=== PATIENT | female | born 1960 | race Caucasian/White ===

== ENCOUNTER → 2019-04-28 16:22 | Outpatient (CLI) | payer BC, SELFPAY ==
--- NOTE | 2019-04-28 | MM_ITS ---
PROCEDURE: MM DIG SCREENING MAMM BI W/CAD BILATERAL DIGITAL BREAST TOMOSYNTHESIS INCLUDED Patient Age:59Y CLINICAL INDICATION: ROUTINE 59-year-old. No hormones, no new complaints . Previous stereotactic biopsy left breast for calcifications . Family history mother with breast cancer age 56 postmenopausal COMPARISON: [facility] DIGITAL MAMM-SCREEN BILATERAL from 12/20/2009 [facility] DIGITAL MAMM SURGICAL SPECIMEN from 01/15/2010 [facility] DIGITAL MAMM-SCREEN BILATERAL from 12/19/2010 [facility] DIGITAL MAMM-SCREEN BILATERAL from 12/23/2011 [facility]B DIG MAMM-SCREEN LISA from 12/21/2012 DMSB DIG MAMM-SCREEN LISA from 12/20/2013 DMSB DIG MAMM-SCREEN LISA from 02/04/2015 [facility]B DIG MAMM-SCREEN LISA W/CAD from 12/18/2016 TECHNIQUE: Standard CC and MLO images were obtained. R2 CAD reviewed. Bilateral digital breast tomosynthesis included FINDINGS: [id number] residual scattered residual fibroglandular elements throughout both breast; with gradual progressive partial involution the fatty replacement bilaterally No no suspicious new or dominant mass but no suspicious calcifications. CAD highlights no areas of concern Right and left breast: With no new areas of concern stable the fibroglandular elements most evident superiorly. Right breast. The fibroglandular elements superior right breast appear stable since multiple previous studies dating back to 2012 Left breast: The metallic micro marker from previous stereotactic biopsy superior left breast again noted. IMPRESSION: stable bilateral mammogram. No new areas of concern. Bilateral follow-up 1 year recommended BI-RAD Category: 1 Negative FOLLOW-UP: 1YR 1 Year Follow-up Thank you Dr. Russ for this referral (A letter has been sent to the patient regarding results of the study.) Dictated by: Francisco Javier Oleary MD 05/02/2019 09:13 Electronically signed by Francisco Javier Oleary MD in [place] 05/02/2019 09:13
== END ==
PROVIDERS: PCP Family Medicine; Visit Provider Obstetrics & Gynecology
DX: Z12.31 Encounter for screening mammogram for malignant neoplasm of breast (principal)
CPT/HCPCS: 77063; 77067

== ENCOUNTER → 2021-09-04 12:53 | Outpatient (CLI) | payer BC, SELFPAY ==
--- NOTE | 2021-09-04 12:59 | MM_ITS ---
PROCEDURE INFORMATION: Exam: MG Bilateral Screening 3D Mammography Exam date and time: 09/04/2021 12:51 PM Age: 61 years old Clinical indication: Screening examination TECHNIQUE: Imaging protocol: Bilateral Screening tomosynthesis and 2D mammography including computer-aided detection (CAD) when performed. COMPARISON: 1. MG MM DIG SCREENING MAMM BI W/CAD 04/28/2019 4:33 PM 2. MG DMSB DIG MAMM-SCREEN LISA W/CAD 12/18/2016 10:40 AM FINDINGS: MAMMOGRAPHY: Breast composition: There are scattered areas of fibroglandular density. Mass: None. Architectural distortion: None. Calcifications: No suspicious calcifications. Asymmetric density: None. Skin thickening: None. Axillary adenopathy: None. IMPRESSION: No mammographic evidence of malignancy. Annual screening is recommended unless otherwise clinically indicated. ASSESSMENT: BI-RADS Category 1: Negative
== END ==
PROVIDERS: PCP Family Medicine; Visit Provider Nurse Practitioner Family
DX: Z12.31 Encounter for screening mammogram for malignant neoplasm of breast (principal)
CPT/HCPCS: 77063; 77067

== ENCOUNTER 2023-03-01 13:45 | Outpatient (CLI) | payer BC, SELFPAY ==
--- NOTE | 2023-03-01 13:54 | XR_ITS ---
FINAL REPORT CLINICAL HISTORY: chronic cough, r/o RLL pna FINDINGS: 2 views of the chest were obtained . The heart is normal in size. The mediastinum is within normal limits. The lungs are clear. There is no pneumothorax. Osseous structures are unremarkable. IMPRESSION: No acute cardiopulmonary process. Reviewed, Interpreted and Dictated by Parrish Obando III, MD Transcribed by Evelina Caceres Authenticated and [facility]
[2023-03-01 16:24] LABS: Adenovirus,PCR Not Detected (NotDetected); Coronavirus 19, PCR Not Detected (NotDetected); Coronavirus 229E Not Detected (NotDetected); Coronavirus NL63 Not Detected (NotDetected); Coronavirus OC43 Not Detected (NotDetected); Coronovirus HKU1,PCR Not Detected (NotDetected); Human Metapneumovirus Not Detected (NotDetected); Influenza A, PCR Not Detected (NotDetected); Influenza AH1, PCR Not Detected (NotDetected); Influenza AH3,PCR Not Detected (NotDetected); Influenza B, PCR Not Detected (NotDetected); Parainfluenza 1, PCR Not Detected (NotDetected); Parainfluenza 2, PCR Not Detected (NotDetected); Parainfluenza 3, PCR Not Detected (NotDetected); Parainfluenza 4, PCR Not Detected (NotDetected); Respiratory Syncytial Virus Not Detected (NotDetected); Rhinovirus/Enterovirus Not Detected (NotDetected)
[2023-03-02 10:46] LABS: Influenza AH1, 2009 Detected (NotDetected)
== END 2023-03-01 23:59 ==
LOC: RAD 13:47
PROVIDERS: PCP Nurse Practitioner Family; Visit Provider Nurse Practitioner Family
DX: B34.9 Viral infection, unspecified (principal); R05.9 Cough, unspecified; J10.1 Influenza due to other identified influenza virus with other respiratory manifestations
CPT/HCPCS: 71046; 87632; 87635

== ENCOUNTER 2023-03-01 23:09 | Outpatient (CLI) | payer BC, SELFPAY | END 2023-03-01 23:59 | LOC: LAB.DROPOF 23:09 | PROVIDERS: PCP Family Medicine; Visit Provider Nurse Practitioner Family | DX: R05.9 Cough, unspecified (principal) ==

== ENCOUNTER 2023-08-23 13:05 | Outpatient (CLI) | payer BC, SELFPAY ==
[2023-08-23 12:28] LABS: Microscopic, Urine URINE MICROSCOPIC (MICROSCOPIC)
[2023-08-23 12:33] LABS: Appearance,Urine CLEAR (Clear); Bilirubin,Urine Negative (Negative); Blood, Urine Negative (Negative); Color,Urine YELLOW (Yellow); Glucose,Urine (UA) Negative (Negative); Ketones,Urine Negative (Negative); Leukocyte Esterase,Urine Negative (Negative); Nitrate,Urine Negative (Negative); Protein,Urine Negative (Negative); Specific Gravity, Urine 1.025 (1.005-1.030); Urobilinogen,Urine 0.2 EU/dl (0.2)
[2023-08-23 12:43] LABS: Total Protein,Urine Random < 5.0 mg/dL (0.0-12.0)
[2023-08-23 12:59] LABS: RBC,Urine Occasional #/hpf (0-3)
[2023-08-23 13:00] LABS: Hyaline Casts,Urine Occasional #/lpf (0); Squamous Epithelial Cell,Urine Occasional #/hpf (0-5)
[2023-08-23 13:14] LABS: Basophils # 0.1 K/mm3 (0-0.2); Basophils % 1.2 % (0.1-2.0); Eosinophils # 0.2 K/mm3 (0.0-0.4); Eosinophils % 3.6 % (0.1-12.0); Hemoglobin 14.9 g/dL (12.2-16.2); Lymphocytes # 2.1 K/mm3 (0.7-4.5); Lymphocytes % 38.3 % (10-50); Mean Corpuscular HGB Conc 37.3 g/dL (31.8-35.4); Mean Corpuscular Hemoglobin 34.3 pg (27.0-31.2); Mean Platelet Volume 8.4 fl (7.4-10.4); Monocytes # 0.5 K/mm3 (0.1-1.0); Monocytes % 9.2 % (1.7-9.3); Neutrophils # 2.6 K/mm3 (1.8-7.8); Neutrophils % 47.7 % (37.0-80.0); Platelet Count 231 K/mm3 (142-424); Red Blood Count 4.35 M/mm3 (4.20-5.40); White Blood Count 5.4 K/mm3 (4.8-10.8)
[2023-08-23 14:03] LABS: Alanine Aminotransferase 16 U/L (12-78); Albumin Level 4.9 g/dl (3.5-5.0); Albumin/Globulin Ratio 1.6 (1.1-1.8); Alkaline Phosphatase 71 U/L (38-126); Anion Gap 16.2 mEq/L (5-15); Aspartate Amino Transferase 26 U/L (14-36); Bilirubin,Total 1.1 mg/dl (0.2-1.3); Blood Urea Nitrogen 18 mg/dl (7-17); Calcium 10.2 mg/dl (8.4-10.2); Carbon Dioxide 29 mmol/L (22.0-30.0); Chloride 97 mmol/L (98-107); Chol/HDL Ratio 3.7 (1-3.5); Cholesterol 254 mg/dl (140-200); Estimated Glomerular Filt Rate 50 ml/min (>60); GFR (African American) 61 ML/MIN (>60); Globulin 3.1 g/dL (1.3-3.2); Glucose 109 mg/dl (74-100); HDL Cholesterol 69 mg/dl (40-60); Potassium 4.2 mmoL/L (3.5-5.1); Sodium 138 mmol/L (136-145); Triglycerides 121 mg/dl (30-150); VLDL Cholesterol 24 mg/dL (0-40)
[2023-08-23 14:14] LABS: Direct LDL Cholesterol 148.51 mg/dL (100-129)
[2023-08-23 14:20] LABS: Free T4 (Free Thyroxine) 1.07 ng/dl (0.78-2.19)
[2023-08-23 14:22] LABS: 25-OH Vitamin D, Total 36.3 ng/mL (30-100)
[2023-08-23 14:53] LABS: Vitamin B12 277 pg/mL (239-931)
[2023-08-23 15:56] LABS: Hemoglobin A1C 5.6 % (4.0-6.0)
== END 2023-08-23 23:59 | disposition home or self-care (01) ==
LOC: LAB.DROPOF 13:05
PROVIDERS: PCP Nurse Practitioner Family; Visit Provider Nurse Practitioner Family
DX: R53.83 Other fatigue (principal); Z13.1 Encounter for screening for diabetes mellitus; E78.5 Hyperlipidemia, unspecified; I10 Essential (primary) hypertension
CPT/HCPCS: 80050; 80053; 80061; 81001; 82306; 82607; 83036; 84156; 84439; 84443; 85025; 87086

== ENCOUNTER 2023-09-07 13:01 | Outpatient (CLI) | payer BC, SELFPAY ==
--- NOTE | 2023-09-07 13:01 | MM_ITS ---
PROCEDURE INFORMATION: Exam: MG Bilateral Screening 3D Mammography Exam date and time: 09/07/2023 12:54 PM Age: 63 years old Clinical indication: Screening mammogram TECHNIQUE: Imaging protocol: Bilateral Screening tomosynthesis and 2D mammography including computer-aided detection (CAD) when performed. COMPARISON: 1. MG MM DIG SCREENING MAMM BI W/CAD 09/04/2021 12:51 PM 2. MG MM DIG SCREENING MAMM BI W/CAD 04/28/2019 4:33 PM 3. MG DMSB DIG MAMM-SCREEN LISA W/CAD 12/18/2016 10:40 AM 4. MG DMSB DIG MAMM-SCREEN LISA 02/04/2015 2:14 PM FINDINGS: MAMMOGRAPHY: Breast composition: There are scattered areas of fibroglandular density. Mass: None. Architectural distortion: No new or suspicious architectural distortion. Calcifications: No new or suspicious calcifications are present Asymmetric density: No new or suspicious asymmetric density is present Skin thickening: None. Axillary adenopathy: None. IMPRESSION: No mammographic evidence of malignancy. Recommend annual screening mammography unless otherwise clinically indicated. ASSESSMENT: BI-RADS category 1: Negative.
== END 2023-09-07 23:59 | disposition home or self-care (01) ==
LOC: RAD 13:01
PROVIDERS: PCP Nurse Practitioner Family; Visit Provider Nurse Practitioner Family
DX: Z12.31 Encounter for screening mammogram for malignant neoplasm of breast (principal)
CPT/HCPCS: 77063; 77067

== ENCOUNTER 2023-09-21 09:07 | Outpatient (CLI) | payer BC, SELFPAY ==
--- NOTE | 2023-09-21 09:08 | XR_ITS ---
FINAL REPORT TECHNIQUE: Bone densitometry calculations of the lumbar spine and left hip were obtained. CLINICAL HISTORY: screening osteoporosis, post menopausal COMPARISON: None FINDINGS: Using L1-4, the bone mineral density of the spine is 1.114 g/cm2, corresponding to T-score of 0.6. Using the left hip, the bone mineral density of the femoral neck is 0.891 g/cm2, corresponding to a T-score of -0.4. NOTE: T-score: Standard deviation compared with peak bone mass of young adult mean. *Following the recommendations of the International Society of Bone densitometry, classification of hip BMD is based on the lower of two T-scores; total hip or femoral neck. IMPRESSION: Normal bone mineral density of the lumbar spine and hip. Reviewed, Interpreted and Dictated by Jonathan Rodrigues MD Transcribed by Neyda Phillips Authenticated and [facility]
== END 2023-09-21 23:59 | disposition home or self-care (01) ==
LOC: RAD 09:08
PROVIDERS: PCP Nurse Practitioner Family; Visit Provider Nurse Practitioner Family
DX: Z13.820 Encounter for screening for osteoporosis (principal); Z78.0 Asymptomatic menopausal state
CPT/HCPCS: 77080

== ENCOUNTER 2024-08-10 13:38 | Outpatient (CLI) | payer BC, SELFPAY ==
[2024-08-10 13:37] LABS: Basophils # 0.1 K/mm3 (0-0.2); Basophils % 0.8 % (0.1-2.0); Eosinophils # 0.3 Kmm3 (0.0-0.4); Eosinophils % 3.2 % (0.1-12.0); Hematocrit 40.9 % (37.0-47.0); Hemoglobin 13.9 g/dL (12.2-16.2); Immature Granulocytes # 0.03 10^3uL; Immature Granulocytes % 0.3 %; Lymphocytes # 2.7 K/mm3 (0.7-4.5); Lymphocytes % 25.5 % (10-50); Mean Corpuscular Hemoglobin 28.9 pg (27.0-31.2); Mean Platelet Volume 10.7 fl (7.4-10.4); Monocytes # 0.9 K/mm3 (0.1-1.0); Monocytes % 8.7 % (1.7-9.3); Neutrophils # 6.4 K/mm3 (1.8-7.8); Neutrophils % 61.5 % (37.0-80.0); Nucleated Red Blood Cells # 0 10^3/uL; Nucleated Red Blood Cells % 0 %; Platelet Count 357 K/mm3 (142-424); Red Blood Count 4.81 M/mm3 (4.20-5.40); Red Cell Distribution Width 12.9 % (11.5-17.5); White Blood Count 10.4 K/mm3 (4.8-10.8)
[2024-08-10 14:13] LABS: Alanine Aminotransferase 13 U/L (12-78); Albumin Level 4.7 g/dl (3.5-5.0); Albumin/Globulin Ratio 1.5 (1.1-1.8); Alkaline Phosphatase 88 U/L (38-126); Amylase 52 U/L (30-110); Anion Gap 13.2 mEq/L (5-15); Aspartate Amino Transferase 21 U/L (14-36); Bilirubin,Total 1.3 mg/dl (0.2-1.3); Blood Urea Nitrogen 13 mg/dl (7-17); Calcium 10.4 mg/dl (8.4-10.2); Carbon Dioxide 30 mmol/L (22.0-30.0); Chloride 97 mmol/L (98-107); Chol/HDL Ratio 3.7 (1-3.5); Cholesterol 212 mg/dl (140-200); Estimated Glomerular Filt Rate 56 ml/min (>60); GFR (African American) 68 ML/MIN (>60); Globulin 3.1 g/dL (1.3-3.2); Glucose 118 mg/dl (74-100); HDL Cholesterol 57 mg/dl (40-60); Lipase 85 U/L (23-300); Potassium 4.2 mmoL/L (3.5-5.1); Sodium 136 mmol/L (136-145); Total Protein,Serum 7.8 g/dl (6.3-8.2); Triglycerides 106 mg/dl (30-150); VLDL Cholesterol 21 mg/dL (0-40)
[2024-08-10 14:25] LABS: C-Reactive Protein 85.5 mg/L (0-4); Direct LDL Cholesterol 122.63 mg/dL (100-129)
[2024-08-10 14:26] LABS: Free T4 (Free Thyroxine) 1.22 ng/dl (0.78-2.19)
[2024-08-10 14:31] LABS: 25-OH Vitamin D, Total 32.9 ng/mL (30-100)
[2024-08-10 14:36] LABS: Erythrocyte Sedimentation Rate 76 mm/hr (0-30)
[2024-08-10 14:37] LABS: Hemoglobin A1C 5.4 % (4.0-6.0)
[2024-08-10 14:44] LABS: Thyroid Stimulating Hormone 3.63 uIU/mL (0.465-4.68)
[2024-08-10 14:48] LABS: Ferritin 201 ng/ml (11.1-264)
[2024-08-10 14:51] LABS: HIV Combo NEGATIVE (Negative)
[2024-08-10 15:05] LABS: Hepatitis C Ab Qual. W/ RFX NEGATIVE (Negative)
[2024-08-10 15:08] LABS: Vitamin B12 > 1000 pg/mL (239-931)
[2024-08-10 15:52] LABS: Iron 42 ug/dL (37-170)
[2024-08-10 16:01] LABS: Total Iron Binding Capacity 259 ug/dL (265-497)
[2024-08-10 17:05] LABS: Microscopic, Urine URINE MICROSCOPIC (MICROSCOPIC)
[2024-08-10 17:29] LABS: Appearance,Urine CLEAR (Clear); Bilirubin,Urine Negative (Negative); Blood, Urine Negative (Negative); Color,Urine YELLOW (Yellow); Glucose,Urine (UA) Negative (Negative); Ketones,Urine Negative (Negative); Leukocyte Esterase,Urine Negative (Negative); Nitrate,Urine Negative (Negative); Protein,Urine Negative (Negative); Urobilinogen,Urine 0.2 EU/dl (0.2)
[2024-08-10 19:09] LABS: RBC,Urine Occasional #/hpf (0-3)
[2024-08-10 19:10] LABS: Bacteria,Urine 3+ /lpf
[2024-08-11 13:15] LABS: EBV Ab VCA, IgG >600.0 U/mL (0.0-17.9); EBV Ab VCA, IgM <36.0 U/mL (0.0-35.9); EBV Nuclear Antigen Ab, IgG >600.0 U/mL (0.0-17.9)
== END 2024-08-10 23:59 | disposition home or self-care (01) ==
LOC: LAB.DROPOF 08-11 14:00
PROVIDERS: PCP Nurse Practitioner Family; Visit Provider Nurse Practitioner Family
DX: F41.9 Anxiety disorder, unspecified (principal); F32.A Depression, unspecified; G47.33 Obstructive sleep apnea (adult) (pediatric); E11.9 Type 2 diabetes mellitus without complications; E78.5 Hyperlipidemia, unspecified; I10 Essential (primary) hypertension; R10.823 Right lower quadrant rebound abdominal tenderness; R41.3 Other amnesia; R53.83 Other fatigue; Z11.59 Encounter for screening for other viral diseases; Z11.4 Encounter for screening for human immunodeficiency virus [HIV]
CPT/HCPCS: 80053; 80061; 81001; 82150; 82306; 82607; 82728; 83036; 83540; 83550; 83690; 84156; 84439; 84443; 85025; 85651; 86140; 86664; 86665; 86803; 87086; 87389

== ENCOUNTER 2024-08-11 08:23 | Outpatient (CLI) | payer BC, SELFPAY ==
--- NOTE | 2024-08-11 08:30 | CT_ITS ---
FINAL REPORT TECHNIQUE: Thin section axial images are obtained through the abdomen after intravenous contrast. Reconstruction images were obtained from the axial data. Exam was performed using dose reduction techniques. CLINICAL HISTORY: abd pain epigastric pain and right lower abdomen pain tenderness when palpated COMPARISON: None FINDINGS: LUNG BASES: Lung bases are clear. Heart size is normal. LIVER: Homogeneous except for a small cysts in the right lobe. GALLBLADDER/BILIARY SYSTEM: Gallbladder is present. No gallstones. No biliary dilatation. SPLEEN: Unremarkable. PANCREAS: Unremarkable. ADRENALS: Unremarkable. KIDNEYS/URETERS/BLADDER: No hydronephrosis, renal mass, or renal stone. Unremarkable urinary bladder. GI TRACT: Appendix is dilated and thick walled. Loculated fluid collection between the appendix and the terminal ileum measuring 2.4 x 2.8 cm consistent with acute appendicitis with perforation and abscess formation. Posterior portion of the GI tract is incompletely imaged. No evidence of small-bowel obstruction. LYMPH NODES/RETROPERITONEUM/MESENTERY: Right lower quadrant lymph nodes are likely reactive. No abdominal aortic aneurysm. ABDOMINAL WALL: The abdominal wall is intact. FREE FLUID: No free intraperitoneal air. No abscess. BONES: No acute osseous abnormality. IMPRESSION: Findings most consistent with acute appendicitis with perforation and small abscess formation as above. Reviewed, Interpreted and Dictated by Justina Ribera MD Transcribed by Shyla Burton Authenticated and [facility] [place] [place]
[2024-08-11] MEDS: SODIUM CHLORIDE 0.9% 10ML SYR (RAD ONLY) 10 ML IV (08:44)
[2024-08-11] MEDS: IOPAMIDOL-370 (76%);100ML BOTTLE 75 ML IV (08:44)
== END 2024-08-11 23:59 | disposition home or self-care (01) ==
LOC: RAD 08:24
PROVIDERS: PCP Nurse Practitioner Family; Visit Provider Nurse Practitioner Family
DX: K35.33 Acute appendicitis with perforation, localized peritonitis, and gangrene, with abscess (principal)
CPT/HCPCS: 74160; Q9967

== ENCOUNTER 2024-08-11 13:16 | Inpatient (IN) | payer BC, SELFPAY ==
[2024-08-11] VITALS (17 sets, daily range): BP systolic 105–158; BP diastolic 64–87; PULSE 64–110; RESP 14–18; TEMP 36.1–43; O2SAT 91–100; BMI 29.4
--- NOTE | 2024-08-11 12:33 | EXP.GEN.HP ---
HPI HPI HPI: This is a 64-year-old female who presented to her primary care provider with increasing abdominal pain that started a few days ago . She developed global abdominal pain that was worse in the middle . No fevers. She was significantly tender in the right lower quadrant and follow-up CT scan revealed changes consistent with perforated appendicitis with abscess. The surgical service was asked to evaluate the patient for urgent operative intervention. CBC dated 08/10/2024 reviewed. WBC 10.4 with no left shift. Hemoglobin 13.9. Platelet count 357. CMP dated 08/10/2024 reviewed. Potassium and creatinine normal. LFTs normal. CT scan from earlier today reviewed. Changes consistent with acute appendicitis with perforation and small abscess formation noted. [facility] Disclaimer: The information contained in this section may have been updated after the patient was seen, as this information can be updated by other users. Medical History (Updated 08/11/24 @ 12:37 by Ronn Reilly MD) Anxiety Cough Anxiety and depression History of torn meniscus of knee Family history of breast cancer in first degree relative Hypertension Hyperlipidemia Surgical History History of right oophorectomy H/O discectomy Family History Other Breast cancer Social History (Updated 08/11/24 @ 11:25 by Ciera Cox RN) Smoking Status: Never smoker alcohol intake: current alcohol intake frequency: 0-2 drinks per day current occupational status: employed Travel in the last 8 weeks?: None Have you lived/traveled outside US in past 30 days?: No Contact w/someone who lives/traveled outside US past 30 days?: No Exposure to someone with infectious disease in past 14 days?: No Do you have a fever (greater than 100.4 F or 38 C)?: No Have you tested positive for COVID-19?: No Exposed to someone with COVID-19 in past 14 days?: No Do you have a sore throat?: No Do you have a cough?: No Do you have any weakness?: No Are you experiencing any nausea/vomitting?: No Do you have any diarrhea?: No Are you experiencing any unusual bleeding?: No Do you have any muscle aches/pain?: No Do you have any abdominal pain?: No Are you experiencing loss of taste or smell?: No Other Medical History Have you received the Flu Vaccine for this season: Yes Have you received the Pneumonia Vaccine: No Meds Home Medications and Allergies Home Medications ?Medication ?Instructions ?Recorded ?Confirmed ?Type buspirone 7.5 mg tablet 7.5 mg PO BID PRN anxiety #60 tabs 03/01/23 08/10/24 Rx escitalopram oxalate 10 mg tablet 10 mg PO DAILY #90 tabs 08/09/24 08/10/24 Rx (Lexapro) pravastatin 40 mg tablet 40 mg PO HS 08/09/24 08/10/24 History valsartan 80 1 tab PO QAM 08/09/24 08/10/24 History mg-hydrochlorothiazide 12.5 mg tablet New Prescriptions to Start Prescriptions: Allergies Allergy/AdvReac Type Severity Reaction Status Date / Time No Known Allergies Allergy Verified 08/11/24 11:25 Exam Data for Last 24 hours Vital signs and Labs for Last 24 Hours: Temp Pulse Resp BP Pulse Ox O2 Del Method 97.3 F L 110 H 18 130/64 100 Room Air 08/11/24 11:07 08/11/24 11:07 08/11/24 11:07 08/11/24 11:07 08/11/24 11:07 08/11/24 11:07 I & O for Last 24 hours: Intake & Output 08/09/24 08/10/24 08/11/24 08/12/24 11:59 11:59 11:59 11:59 Weight 177 lb Constitutional Constitutional: no acute distress *Routine HEENT Exam Head: Present normocephalic Eye: Present EOMI ENT: Present mucous membranes moist *Routine Neck Exam Neck: Present full ROM *Routine Respiratory Exam Respiratory: Absent respiratory distress *Routine Cardiovascular Exam Cardiovascular: Absent tachycardia *Routine Abdominal Exam Abdominal: Present soft and tenderness *Routine Rectal Exam Rectal:: deferred *Routine Genitalia Exam Genitalia:: deferred *Routine Extremities Exam Extremities: Present full ROM *Routine Skin Exam Skin: Absent erythema *Routine Neurological Exam Neurological: Present alert Results Results CT scan - abdomen: report reviewed and image reviewed CT scan - pelvis: report reviewed and image reviewed Assessment and Plan *Assessment and plan (1) Appendicitis with abscess: Status: Acute Category: Medical Code(s): K35.33 - Acute appendicitis with perforation, localized peritonitis, and gangrene, with abscess Plan: She is being transferred urgently to the operative suite for laparoscopic appendectomy. Postoperative care to follow. I have discussed the risks and benefits including, but not limited to: Bleeding Infection Damage to surrounding tissue Inherent risks of sedation The patient agrees to proceed. (2) Anxiety and depression: Status: Acute Category: Medical Code(s): F41.9 - Anxiety disorder, unspecified; F32.A - Depression, unspecified (3) Hyperlipidemia: Status: Chronic Qualifiers: Hyperlipidemia type: unspecified Qualified Code(s): E78.5 - Hyperlipidemia, unspecified Category: Medical Code(s): E78.5 - Hyperlipidemia, unspecified (4) Hypertension: Status: Chronic Qualifiers: Hypertension type: unspecified Qualified Code(s): I10 - Essential (primary) hypertension Category: Medical Code(s): I10 - Essential (primary) hypertension
[2024-08-11] MEDS: METRONIDAZ/SOD CHL 500 MG/100 ML PIGGYBACK 100 MG IV (12:55)
[2024-08-11] MEDS: LIDOCAINE 1% 20ML MDV 20 ML (13:03)
[2024-08-11] MEDS: SODIUM CHLORIDE IRRIG SOLUTION 3,000 ML 200 ML IR (13:04)
[2024-08-11] MEDS: CEFTRIAXONE SODIUM 2 GM in 0.9 % SODIUM CHLORIDE 100 ML IV (13:07)
--- NOTE | 2024-08-11 13:37 | EXP.HP ---
History of Present Illness *History of present illness: This is a 64-year-old female who presented to her primary care provider with increasing abdominal pain that started a few days ago . She developed global abdominal pain that was worse in the middle . No fevers. She was significantly tender in the right lower quadrant and follow-up CT scan revealed changes consistent with perforated appendicitis with abscess. The surgical service was asked to evaluate the patient for urgent operative intervention. CBC dated 08/10/2024 reviewed. WBC 10.4 with no left shift. Hemoglobin 13.9. Platelet count 357. CMP dated 08/10/2024 reviewed. Potassium and creatinine normal. LFTs normal. CT scan from earlier today reviewed. Changes consistent with acute appendicitis with perforation and small abscess formation noted. [facility] Disclaimer: The information contained in this section may have been updated after the patient was seen, as this information can be updated by other users. Medical History (Updated 08/11/24 @ 12:37 by Ronn Reilly MD) Anxiety Cough Anxiety and depression History of torn meniscus of knee Family history of breast cancer in first degree relative Hypertension Hyperlipidemia Surgical History History of right oophorectomy H/O discectomy Family History Other Breast cancer Social History (Updated 08/11/24 @ 11:25 by Ciera Cox RN) Smoking Status: Never smoker alcohol intake: current alcohol intake frequency: 0-2 drinks per day current occupational status: employed Travel in the last 8 weeks?: None Have you lived/traveled outside US in past 30 days?: No Contact w/someone who lives/traveled outside US past 30 days?: No Exposure to someone with infectious disease in past 14 days?: No Do you have a fever (greater than 100.4 F or 38 C)?: No Have you tested positive for COVID-19?: No Exposed to someone with COVID-19 in past 14 days?: No Do you have a sore throat?: No Do you have a cough?: No Do you have any weakness?: No Are you experiencing any nausea/vomitting?: No Do you have any diarrhea?: No Are you experiencing any unusual bleeding?: No Do you have any muscle aches/pain?: No Do you have any abdominal pain?: No Are you experiencing loss of taste or smell?: No Other Medical History Have you received the Flu Vaccine for this season: Yes Have you received the Pneumonia Vaccine: No Meds Home Medications and Allergies Home Medications ?Medication ?Instructions ?Recorded ?Confirmed ?Type buspirone 7.5 mg tablet 7.5 mg PO BID PRN anxiety #60 tabs 03/01/23 08/10/24 Rx escitalopram oxalate 10 mg tablet 10 mg PO DAILY #90 tabs 08/09/24 08/10/24 Rx (Lexapro) pravastatin 40 mg tablet 40 mg PO HS 08/09/24 08/10/24 History valsartan 80 1 tab PO QAM 08/09/24 08/10/24 History mg-hydrochlorothiazide 12.5 mg tablet New Prescriptions to Start Prescriptions: Allergies Allergy/AdvReac Type Severity Reaction Status Date / Time No Known Allergies Allergy Verified 08/11/24 11:25 Exam Data for Last 24 hours Vital signs and Labs for Last 24 Hours: Temp Pulse Resp BP Pulse Ox O2 Del Method 97.3 F L 110 H 18 130/64 100 Room Air 08/11/24 11:07 08/11/24 11:07 08/11/24 11:07 08/11/24 11:07 08/11/24 11:07 08/11/24 11:07 I & O for Last 24 hours: Intake & Output 08/08/24 08/09/24 08/10/24 08/11/24 23:59 23:59 23:59 23:59 Weight 80.286 kg
--- NOTE | 2024-08-11 14:25 | EXP.OP.NOTE ---
Date of procedure: 08/11/24 Pre-op Diagnosis:: Perforated appendicitis with abscess Post-op Diagnosis:: Same Procedure performed:: Laparoscopic appendectomy Surgeon:: Ronn Reilly MD Anesthesia: GETA Estimated blood loss (mL): 25 Operative findings:: Profound inflammatory changes throughout right lower quadrant with adhered colon and small bowel. Dense adhesions to right lateral sidewall and posterior peritoneal margin Necrotic appendix with perforation and posteriorly-placed abscess No obvious injury to small bowel, colon, or ureter visualized Operative note:: After informed consent was obtained the patient was taken to the operating room and placed in the supine position. General anesthesia was induced and her abdomen was prepped and draped in a sterile fashion. After infiltration with local anesthetic a supraumbilical incision was made. A Veress needle was placed in position. A 5 mm trocar was placed in the suprapubic position under direct visualization. An additional 5 mm trocar was placed in the left lower quadrant. Evaluation revealed profound inflammatory changes throughout the right lower quadrant. Dissection was exceptionally difficult as dense adhesions to the right lateral sidewall and posterior peritoneal margin were noted. Adhesions involve the small bowel, colon, and planes overlying the expected path of the ureter. No obvious injury to the above-stated structures noted. A complex posterior abscess was evacuated via suctioning. As the appendix was elevated a combination of blunt dissection and harmonic lauren were utilized to dissect through the dense adhesed tissue and mesoappendix. The margin of the appendix appeared viable. An Endopath 45 stapling device was utilized to transect through the appendix at its base. The appendix was placed in a retrieval bag and removed through the supraumbilical trocar site. The right lower quadrant was thoroughly irrigated. No active bleeding or sign of injury was noted. No additional pockets of purulence were noted. Fascia at the supraumbilical trocar site was reapproximated utilizing the neoclose device. Pneumoperitoneum was released as the remaining trocars were removed. All wounds were irrigated and skin was reapproximated with 4-0 Monocryl in an interrupted subcuticular manner. Dressings were applied and the patient was transferred to recovery in stable condition. Condition: stable Disposition: PACU Specimens:: Appendix Complications:: No immediate
--- NOTE | 2024-08-11 14:37 | EXP.ANES.I ---
[facility] Anesthesia Record Part I Anesthesia Record I Intake, IV Amount: 1,400 Hydration: Adequate Estimated blood loss (mL): 0 Urine output (mL): 0 Blood Products used (#): none Blood Pressure: 134/76 SaO2: 95 Pulse Rate: 67 Airway Patency: Patent Respiratory Rate: 14 Temperature: 97.0 F Patient is:: Awake, Nasal O2 and Stable Stable to PACU at:: 14:30
[2024-08-11] MEDS: ONDANSETRON 4MG/2ML VIAL 4 MG IV (14:44)
[2024-08-11] MEDS: MORPHINE 2MG/ML SYRINGE 1 MG IV (14:48)
[2024-08-11] MEDS: PROMETHAZINE HCL 25MG/ML 1ML VIAL 6.25 MG IV (14:57)
[2024-08-11] MEDS: SODIUM CHLORIDE 0.9% 25ML BAG 25 ML IV (14:59)
--- NOTE | 2024-08-11 15:06 | PC.NURSE ---
arrived by bed from surgery
--- NOTE | 2024-08-11 15:21 | SUR.PHASEI ---
1500- Patient VSS and pain and nausea are controlled at this time. Report called to ANI Lomeli. Patient transported via bed to room 217.
[2024-08-11] MEDS: KETOROLAC 30MG/ML VIAL 30 MG IV (15:27)
[2024-08-11] MEDS: PROMETHAZINE HCL 25MG/ML 1ML VIAL 12.5 MG IV (15:33)
[2024-08-11] MEDS: 0.9 % SODIUM CHLORIDE 1000ML 1,000 ML 125 ML IV ×2 (15:56→22:16)
[2024-08-11] MEDS: PIPERACILLIN/TAZO 4.5 GM in 0.9 % SODIUM CHLORIDE 100 ML IV ×2 (15:57→21:29)
[2024-08-11] MEDS: HYDROCODONE/APAP 5/325 MG TABLET 1 TAB PO (16:00)
--- NOTE | 2024-08-11 19:52 | EXP.SURG.PN ---
Subjective Narrative: Post-op check from [facility] earlier today for perforated appendicitis. Operative records reviewed. Patient without much complaint. Had initial INDY, which does not seem significant at this time. No worsening pain. No dyspnea. Exam Data for Last 24 hours Vital signs and Labs for Last 24 Hours: Temp Pulse Resp BP Pulse Ox O2 Del Method 97.5 F L 64 16 107/64 L 91 L Room Air 08/11/24 15:23 08/11/24 18:00 08/11/24 18:00 08/11/24 18:00 08/11/24 18:00 08/11/24 18:40 I & O for Last 24 hours: Intake & Output 08/08/24 08/09/24 08/10/24 08/11/24 23:59 23:59 23:59 23:59 Intake Total 1400 / 1400 Balance 1400 / 1400 Weight 80.286 kg Constitutional Constitutional: no acute distress and cooperative *Routine Respiratory Exam Respiratory: Present normal respiratory effort and able to speak in complete sentences *Routine Cardiovascular Exam Cardiovascular: Present RRR *Routine Abdominal Exam Comments: Appropriately tender, although minimally so. Dressings clean and intact. No worrisome distention. No guarding. *Routine Exam Comments: Cosme catheter in place. No gross blood noted. Volume adequate. Progress Note: A&P Assessment and plan (1) Appendicitis with abscess: Status: Acute Assessment and plan: Post-op from [facility]. IVF. Abx. Pain appears well-controlled. No evidence of early operative complications. Will closely monitor outputs and am labs. Discussed case with patient and her at bedside. They are comfortable with this care plan. (2) Anxiety and depression: Status: Acute (3) Hyperlipidemia: Status: Chronic (4) Hypertension: Status: Chronic
[2024-08-11] MEDS: PRAVASTATIN 40MG TAB 40 MG PO (21:30)
[2024-08-11] MEDS: PANTOPRAZOLE 40MG VIAL 40 MG IV (21:30)
[2024-08-11 23:08] LABS: Microscopic, Urine URINE MICROSCOPIC (MICROSCOPIC)
[2024-08-11 23:18] LABS: Appearance,Urine CLEAR (Clear); Bilirubin,Urine Negative (Negative); Blood, Urine Negative (Negative); Color,Urine YELLOW (Yellow); Glucose,Urine (UA) Negative (Negative); Ketones,Urine Negative (Negative); Leukocyte Esterase,Urine Negative (Negative); Nitrate,Urine Negative (Negative); Protein,Urine Negative (Negative); Specific Gravity, Urine <= 1.005 (1.005-1.030); Urobilinogen,Urine 0.2 EU/dl (0.2)
[2024-08-11 23:27] LABS: Squamous Epithelial Cell,Urine Occasional #/hpf (0-5); WBC,Urine Occasional #/hpf (0-3)
[2024-08-12] VITALS: BP 98/53; PULSE 63; RESP 16; TEMP 36.7; O2SAT 91
[2024-08-12] MEDS: HYDROCODONE/APAP 5/325 MG TABLET 1 TAB PO ×3 (00:38→20:48)
[2024-08-12] MEDS: PIPERACILLIN/TAZO 4.5 GM in 0.9 % SODIUM CHLORIDE 100 ML IV ×4 (02:55→20:48)
[2024-08-12 04:00] VITALS: BP 98/58; PULSE 53; RESP 16; TEMP 36.3; O2SAT 94; BMI 31.1
--- NOTE | 2024-08-12 04:31 | PC.NURSE ---
v/s, ox4. Pt tolerated IV ABX. Pt c/o pain once during shift, treated per APR. Strict I&O's per surgeon-Dr. Lake. Pt has been using her IS without issue. Cosme still in place. Lap sites monitored for drainage. Plan of care ongoing.
[2024-08-12] MEDS: 0.9 % SODIUM CHLORIDE 1000ML 1,000 ML 125 ML IV (06:03)
[2024-08-12 07:25] LABS: Basophils % 0.2 % (0.1-2.0); Hematocrit 31.7 % (37.0-47.0); Hemoglobin 10.5 g/dL (12.2-16.2); Immature Granulocytes # 0.05 10^3uL; Immature Granulocytes % 0.5 %; Lymphocytes % 9.1 % (10-50); Mean Corpuscular HGB Conc 33.1 g/dL (31.8-35.4); Mean Corpuscular Hemoglobin 28.4 pg (27.0-31.2); Mean Corpuscular Volume 85.7 fl (81-99); Mean Platelet Volume 10.2 fl (7.4-10.4); Monocytes # 0.8 K/mm3 (0.1-1.0); Monocytes % 7.1 % (1.7-9.3); Neutrophils # 8.8 K/mm3 (1.8-7.8); Neutrophils % 83.1 % (37.0-80.0); Nucleated Red Blood Cells # 0 10^3/uL; Nucleated Red Blood Cells % 0 %; Platelet Count 264 K/mm3 (142-424); Red Cell Distribution Width 12.7 % (11.5-17.5); Red Cell Distribution Width-SD 39.8 fL; White Blood Count 10.6 K/mm3 (4.8-10.8)
[2024-08-12 08:00] VITALS: BP 98/58; PULSE 61; RESP 17; TEMP 36.6; O2SAT 98
[2024-08-12] MEDS: IRBESARTAN 75MG TABLET 75 MG PO (08:28)
[2024-08-12] MEDS: hydroCHLOROthiazide 12.5MG CAPSULE 12.5 MG PO (08:29)
[2024-08-12] MEDS: ESCITALOPRAM 10MG TABLET 10 MG PO (08:29)
[2024-08-12 08:36] LABS: Chloride 108 mmol/L (98-107); Sodium 135 mmol/L (136-145)
[2024-08-12 08:37] LABS: Potassium 3.8 mmoL/L (3.5-5.1)
[2024-08-12 08:39] LABS: Blood Urea Nitrogen 14 mg/dl (7-17); Creatinine Clearance Estimated 76 mL/min (50-200); Estimated Glomerular Filt Rate 56 ml/min (>60); GFR (African American) 68 ML/MIN (>60)
[2024-08-12 08:40] LABS: Anion Gap 6.8 mEq/L (5-15); Calcium 8.2 mg/dl (8.4-10.2); Carbon Dioxide 24 mmol/L (22.0-30.0); Glucose 144 mg/dl (74-100)
--- NOTE | 2024-08-12 08:49 | P.PN_ITS ---
Subjective Narrative: Expectedly with some pain overnight. Denies nausea. Passing a small amount of flatus. Sat in chair x 2 hrs last pm. Seems a little hesitant for PO intake. Exam Data for Last 24 hours Vital signs and Labs for Last 24 Hours: Temp Pulse Resp BP Pulse Ox O2 Del Method 98 F 61 17 98/58 L 98 Room Air 08/12/24 08:00 08/12/24 08:00 08/12/24 08:00 08/12/24 08:00 08/12/24 08:00 08/12/24 08:00 Laboratory Results - last 24 hr 08/11/24 12:45: Urine Color Yellow, Urine Appearance Clear, Urine pH 6.0, Ur Specific [place] <= 1.005, Urine Protein Negative, Urine Glucose (UA) Negative, Urine Ketones Negative, Urine Blood Negative, Urine Nitrate Negative, Urine Bilirubin Negative, Urine Urobilinogen 0.2, Ur Leukocyte Esterase Negative, Urine RBC None, Urine WBC Occasional, Ur Squamous Epith Cells Occasional, Urine Bacteria None 08/12/24 07:07: WBC 10.6, RBC 3.70 L, Hgb 10.5 L, Hct 31.7 L, MCV 85.7, MCH 28.4, MCHC 33.1, RDW 12.7, Plt Count 264 D, MPV 10.2, Neut % (Auto) 83.1 H, Lymph % (Auto) 9.1 L, [place] % (Auto) 7.1, Eos % (Auto) 0.0 L, Baso % (Auto) 0.2, Neut # (Auto) 8.8 H, Lymph # (Auto) 1.0, [place] # (Auto) 0.8, Eos # (Auto) 0.0, Baso # (Auto) 0.0, Sodium 135 L, Potassium 3.8, Chloride 108 H, Carbon Dioxide 24, Anion Gap 6.8, BUN 14, Creatinine 1.00, Estimated Creat Clear 76, Estimated GFR 56 L, Est GFR ( Amer) 68, Glucose 144 H, Calcium 8.2 L I & O for Last 24 hours: Intake & Output 08/09/24 08/10/24 08/11/24 08/12/24 23:59 23:59 23:59 23:59 Intake Total 1399 / 2014 615 / 615 Output Total 500 / 500 700 / 700 Balance 900 / 1515 -85 / -85 Weight 80.286 kg 84.822 kg Constitutional Constitutional: no acute distress and cooperative *Routine Respiratory Exam Respiratory: Present normal respiratory effort and able to speak in complete sentences Comments: Slight coarse cough without production (chronic, per patient report) *Routine Cardiovascular Exam Cardiovascular: Present RRR *Routine Abdominal Exam Comments: Appropriately tender at incisions and RLQ. No diffuse peritoneal signs. Very small foci of strike-through at umbilical dressing. Non-distended. *Routine Exam Comments: Urine clear/pale yellow in herrera tubing and collection bag. *Routine Extremities Exam Comments: LLE with very minimal edema. No edema RLE. Progress Note: A&P Assessment and plan (1) Appendicitis with abscess: Status: Acute (2) Anxiety and depression: Status: Acute (3) Hyperlipidemia: Status: Chronic (4) Hypertension: Status: Chronic Assessment and Plan Assessment and Plan for All Diagnoses:: POD #1 s/p lap appy for perforated appendicitis. Hemodynamically appears appropriate. Slight drift of H/H does not appear worrisome currently, but will trend in am. Will have herrera removed as no evidence of hematuria. UOP appears to be documented in duplicate. As such, her UOP was likely 600mL overnight which is still more than adequate. Will decrease IVF rate and hope to advance diet today as tolerated. OOB and ambulate in hallway today. Continue IV abx d/t operative findings.
[2024-08-12] MEDS: 0.45% NaCl w/20mEq KCL 1,000 ML 50 ML IV (09:00)
[2024-08-12 12:00] VITALS: BP 93/47; PULSE 58; RESP 16; TEMP 36.6; O2SAT 95
[2024-08-12 16:00] VITALS: BP 104/63; PULSE 61; RESP 16; TEMP 36.6; O2SAT 94
[2024-08-12 19:32] VITALS: BP 110/68; PULSE 58; RESP 20; TEMP 36.8; O2SAT 94
--- NOTE | 2024-08-12 19:45 | PC.NURSE ---
PATIENT TOLERATING CLEAR LIQUIDS, PATIENT HAS AMBULATED IN THE HALLWAYS TWICE TODAY WITHOUT ANY COMPLICATIONS, BHATT CATH REMOVED PER MD ORDER, URINE OUTPUT HAS BEEN ADEQUATE SINCE REMOVAL OF BHATT, WILL CONTINUE TO MONITOR.
[2024-08-12] MEDS: PRAVASTATIN 40MG TAB 40 MG PO (20:48)
[2024-08-12] MEDS: PANTOPRAZOLE 40MG VIAL 40 MG IV (20:48)
[2024-08-13] VITALS: BP 124/71; PULSE 62; RESP 18; TEMP 36.8; O2SAT 95
[2024-08-13] MEDS: PIPERACILLIN/TAZO 4.5 GM in 0.9 % SODIUM CHLORIDE 100 ML IV ×4 (02:19→20:51)
[2024-08-13 04:00] VITALS: BP 122/70; PULSE 60; RESP 16; TEMP 36.8; O2SAT 96; BMI 31.1
--- NOTE | 2024-08-13 05:03 | PC.NURSE ---
Pt A&O x4. Pt is on RA. Pt complained of pain once this shift, medicated per MAR. Pt tolerating liquid diet ok. No acute changes noted. Pt resting in bed, call light is within reach. Plan of care ongoing.
[2024-08-13 06:20] LABS: Basophils % 0.6 % (0.1-2.0); Eosinophils # 0.2 Kmm3 (0.0-0.4); Eosinophils % 3.1 % (0.1-12.0); Hematocrit 29.8 % (37.0-47.0); Hemoglobin 9.8 g/dL (12.2-16.2); Immature Granulocytes # 0.01 10^3uL; Immature Granulocytes % 0.1 %; Lymphocytes # 2.2 K/mm3 (0.7-4.5); Lymphocytes % 31.6 % (10-50); Mean Corpuscular HGB Conc 32.9 g/dL (31.8-35.4); Mean Corpuscular Hemoglobin 28.7 pg (27.0-31.2); Mean Corpuscular Volume 87.1 fl (81-99); Mean Platelet Volume 10.3 fl (7.4-10.4); Monocytes # 0.5 K/mm3 (0.1-1.0); Monocytes % 7.4 % (1.7-9.3); Neutrophils % 57.2 % (37.0-80.0); Nucleated Red Blood Cells # 0 10^3/uL; Nucleated Red Blood Cells % 0 %; Platelet Count 264 K/mm3 (142-424); Red Blood Count 3.42 M/mm3 (4.20-5.40); Red Cell Distribution Width 13.1 % (11.5-17.5); Red Cell Distribution Width-SD 41.6 fL
[2024-08-13 06:29] LABS: Albumin Level 3.2 g/dl (3.5-5.0); Chloride 109 mmol/L (98-107); Potassium 3.3 mmoL/L (3.5-5.1); Sodium 140 mmol/L (136-145)
[2024-08-13 06:32] LABS: Alanine Aminotransferase 13 U/L (12-78); Albumin/Globulin Ratio 1.1 (1.1-1.8); Alkaline Phosphatase 60 U/L (38-126); Anion Gap 4.3 mEq/L (5-15); Aspartate Amino Transferase 22 U/L (14-36); Bilirubin,Total 0.5 mg/dl (0.2-1.3); Blood Urea Nitrogen 13 mg/dl (7-17); Calcium 8.4 mg/dl (8.4-10.2); Carbon Dioxide 30 mmol/L (22.0-30.0); Creatinine Clearance Estimated 63 mL/min (50-200); Estimated Glomerular Filt Rate 45 ml/min (>60); GFR (African American) 55 ML/MIN (>60); Globulin 2.8 g/dL (1.3-3.2); Glucose 105 mg/dl (74-100)
[2024-08-13 08:00] VITALS: BP 129/71; PULSE 66; RESP 16; TEMP 36.4; O2SAT 94
--- NOTE | 2024-08-13 09:29 | P.PN_ITS ---
Subjective Narrative: States she slept much better last night . Still sleepy this am. Passing flatus. No BM. Tolerated clear liquids without nausea. Ambulated in the hallway x 5. Voided without herrera. Denies seeing any blood in urine. Exam Data for Last 24 hours Vital signs and Labs for Last 24 Hours: Temp Pulse Resp BP Pulse Ox O2 Del Method 97.5 F L 66 16 129/71 94 L Room Air 08/13/24 08:00 08/13/24 08:00 08/13/24 08:00 08/13/24 08:00 08/13/24 08:00 08/13/24 08:00 Laboratory Results - last 24 hr 08/13/24 05:50: WBC 7.0 D, RBC 3.42 L, Hgb 9.8 L, Hct 29.8 L, MCV 87.1, MCH 28.7, MCHC 32.9, RDW 13.1, Plt Count 264, MPV 10.3, Neut % (Auto) 57.2, Lymph % (Auto) 31.6, [place] % (Auto) 7.4, Eos % (Auto) 3.1, Baso % (Auto) 0.6, Neut # (Auto) 4.0, Lymph # (Auto) 2.2, [place] # (Auto) 0.5, Eos # (Auto) 0.2, Baso # (Auto) 0.0, Sodium 140, Potassium 3.3 L, Chloride 109 H, Carbon Dioxide 30, Anion Gap 4.3 L, BUN 13, Creatinine 1.20 H, Estimated Creat Clear 63, Estimated GFR 45 L, Est GFR ( Amer) 55 L, Glucose 105 H D, Calcium 8.4, Total Bilirubin 0.5, AST 22, ALT 13, Alkaline Phosphatase 60, Total Protein 6.0 L, Albumin 3.2 L, Globulin 2.8, Albumin/Globulin Ratio 1.1 I & O for Last 24 hours: Intake & Output 08/10/24 08/11/24 08/12/24 08/13/24 23:59 23:59 23:59 23:59 Intake Total 1399 1335 / 1535 300 / 300 Output Total 500 / 500 1550 / 0 500 / 500 Balance 900 / 1515 -215 / -515 -200 / -200 Weight 80.286 kg 84.822 kg 84.822 kg Constitutional Constitutional: no acute distress and average body habitus *Routine Respiratory Exam Respiratory: Present normal respiratory effort and able to speak in complete sentences *Routine Cardiovascular Exam Cardiovascular: Present RRR *Routine Abdominal Exam Abdominal: Present soft Comments: No change in dressing appearance. Overall softer exam this am. No distention. Still appropriately tender at incisions and RLQ. No R flank tenderness. Progress Note: A&P Assessment and plan (1) Appendicitis with abscess: Status: Acute Assessment and plan: POD #2 s/p lap appy for perforated appendicitis. Clinically appears to be progressing well. Tolerating clear liquids. Ambulating. Unclear significance of Hgb drift to 9.8 from 10.5. No obvious clinical sign of bleeding otherwise. Creatinine 1.2 which is a little up from 1.0 yesterday. Given the operative findings, will repeat these in am. Continue IVF at 50ml/h. Advance diet to cardiac diet. Not ready for discharge today given the above concerns. Will defer possible discharge to surgical practice of record tomorrow. (2) Anxiety and depression: Status: Acute (3) Hyperlipidemia: Status: Chronic (4) Hypertension: Status: Chronic
[2024-08-13] MEDS: IRBESARTAN 75MG TABLET 75 MG PO (10:27)
[2024-08-13] MEDS: ESCITALOPRAM 10MG TABLET 10 MG PO (10:27)
[2024-08-13] MEDS: hydroCHLOROthiazide 12.5MG CAPSULE 12.5 MG PO (10:27)
[2024-08-13] MEDS: 0.45% NaCl w/20mEq KCL 1,000 ML 50 ML IV (11:34)
[2024-08-13] MEDS: HYDROCODONE/APAP 5/325 MG TABLET 1 TAB PO ×2 (11:38→17:44)
[2024-08-13 16:00] VITALS: BP 114/68; PULSE 77; RESP 17; TEMP 36.4; O2SAT 95
[2024-08-13 20:00] VITALS: BP 133/76; PULSE 68; RESP 14; TEMP 37; O2SAT 96
[2024-08-13] MEDS: PRAVASTATIN 40MG TAB 40 MG PO (20:51)
[2024-08-13] MEDS: PANTOPRAZOLE 40MG TABLET 40 MG PO (20:51)
[2024-08-14] VITALS: BP 133/66; PULSE 63; RESP 12; TEMP 36.8; O2SAT 97
[2024-08-14] MEDS: PIPERACILLIN/TAZO 4.5 GM in 0.9 % SODIUM CHLORIDE 100 ML IV (02:15)
[2024-08-14 04:00] VITALS: BP 154/89; PULSE 74; RESP 14; TEMP 36.9; O2SAT 96; BMI 32.7
--- NOTE | 2024-08-14 04:30 | PC.NURSE ---
Patient is alert and oriented x4. She was observed to have eyes closed, respirations even and unlabored on room air, and no apparent distress throughout the majority of the night. Patient has not had any complaints of worsening abdominal pain. Upon palpation of her abdomen, the patient reported minimal tenderness; appearance is soft and slightly puffy. Bowel sounds were active in all quadrants upon auscultation; patient reports passing gas. However, the patient has not had a bowel movement thus far this shift. Laparscopic incision sites were assessed; dressings remain clean, dry, and intact. Auscultation of heart and lungs within normal findings. Incentive spirometer usage at the bedside. Scheduled medications were administered per APR. KCl 20 mEq in 0.45% NaCl solution continues to infuse at 50 mL/hr. Patient has been tolerating a cardiac diet (was given orange sherbet ice cream at bedtime) very well without complaints of nausea/vomiting. She ambulates independently in her room/to the bathroom without any difficulties. SCDs refused. Urine output measured and documented accordingly. At this time, the patient is resting in bed without any further complaints. No new needs at this time. Call light within reach.
[2024-08-14 05:56] LABS: Basophils % 0.6 % (0.1-2.0); Eosinophils # 0.3 Kmm3 (0.0-0.4); Eosinophils % 3.9 % (0.1-12.0); Hematocrit 31.3 % (37.0-47.0); Hemoglobin 10.5 g/dL (12.2-16.2); Immature Granulocytes # 0.02 10^3uL; Immature Granulocytes % 0.3 %; Lymphocytes # 2.3 K/mm3 (0.7-4.5); Lymphocytes % 33.2 % (10-50); Mean Corpuscular HGB Conc 33.5 g/dL (31.8-35.4); Mean Corpuscular Volume 86.5 fl (81-99); Mean Platelet Volume 10.1 fl (7.4-10.4); Monocytes # 0.6 K/mm3 (0.1-1.0); Neutrophils # 3.7 K/mm3 (1.8-7.8); Nucleated Red Blood Cells # 0 10^3/uL; Nucleated Red Blood Cells % 0 %; Platelet Count 295 K/mm3 (142-424); Red Blood Count 3.62 M/mm3 (4.20-5.40); Red Cell Distribution Width 12.8 % (11.5-17.5); Red Cell Distribution Width-SD 40.9 fL; White Blood Count 6.9 K/mm3 (4.8-10.8)
[2024-08-14 06:02] LABS: Chloride 103 mmol/L (98-107); Potassium 3.6 mmoL/L (3.5-5.1); Sodium 140 mmol/L (136-145)
[2024-08-14 06:05] LABS: Anion Gap 9.6 mEq/L (5-15); Carbon Dioxide 31 mmol/L (22.0-30.0)
[2024-08-14 06:06] LABS: Calcium 8.4 mg/dl (8.4-10.2); Glucose 98 mg/dl (74-100)
[2024-08-14 06:11] LABS: Blood Urea Nitrogen 12 mg/dl (7-17); Creatinine Clearance Estimated 62 mL/min (50-200); Estimated Glomerular Filt Rate 41 ml/min (>60); GFR (African American) 50 ML/MIN (>60)
--- NOTE | 2024-08-14 07:31 | P.PN_ITS ---
Subjective Narrative: Patient feels well other than somewhat weak. Passing gas but no bowel movement. Tolerating cardiac diet. No nausea. Exam Data for Last 24 hours Vital signs and Labs for Last 24 Hours: Temp Pulse Resp BP Pulse Ox O2 Del Method 98.4 F 74 14 154/89 H 96 Room Air 08/14/24 04:00 08/14/24 04:00 08/14/24 04:00 08/14/24 04:00 08/14/24 04:00 08/14/24 06:50 Laboratory Results - last 24 hr 08/14/24 05:17: WBC 6.9, RBC 3.62 L, Hgb 10.5 L, Hct 31.3 L, MCV 86.5, MCH 29.0, MCHC 33.5, RDW 12.8, Plt Count 295, MPV 10.1, Neut % (Auto) 54.0, Lymph % (Auto) 33.2, [place] % (Auto) 8.0, Eos % (Auto) 3.9, Baso % (Auto) 0.6, Neut # (Auto) 3.7, Lymph # (Auto) 2.3, [place] # (Auto) 0.6, Eos # (Auto) 0.3, Baso # (Auto) 0.0, Sodium 140, Potassium 3.6, Chloride 103, Carbon Dioxide 31 H, Anion Gap 9.6, BUN 12, Creatinine 1.30 H, Estimated Creat Clear 62, Estimated GFR 41 L, Est GFR ( Amer) 50 L, Glucose 98, Calcium 8.4 I & O for Last 24 hours: Intake & Output 08/11/24 08/12/24 08/13/24 08/14/24 11:59 11:59 11:59 11:59 Intake Total 2014 1500 / 1500 1664 / 1664 Output Total 1200 / 1200 1350 / 1350 2125 / 2125 Balance 815 / 815 150 / 150 -461 / -461 Weight 177 lb 187 lb 187 lb 0.008 oz 196 lb 9 oz *Routine Abdominal Exam Abdominal: Present soft; Absent tenderness Comments: Incisions clean Progress Note: A&P Assessment and plan (1) Appendicitis with abscess: Status: Acute Assessment and plan: Creatinine of 1.3. Hemoglobin stable. Plan will be for discharge with early outpatient follow-up with Dr. Reilly. (2) Anxiety and depression: Status: Acute (3) Hyperlipidemia: Status: Chronic (4) Hypertension: Status: Chronic
--- NOTE | 2024-08-14 07:53 | P.PNANES_ITS ---
[facility] Anesthesia Record Part II Anesthesia Record Part II Discharge Time: 15:00 Destination: Medical Surgical Department PACU nurse assessment reviewed?: Yes Patient Condition:: Good Anesthesia Complications:: None Swallowing reflex intact?: Yes Airway Patency: Patent Cyanosis?: No Blood Pressure: 131/75 SaO2: 99 Respiratory Rate: 18 Pulse Rate: 70 Temperature: 97 F Mental Status: Alert & Oriented Pain level:: 7 Nausea and/or vomitting:: None Intake, IV Amount: 0 Hydration: Adequate
[2024-08-14 07:54] VITALS: BP 131/75; PULSE 70; RESP 18; TEMP 36.1; O2SAT 99
[2024-08-14 08:00] VITALS: BP 112/59; PULSE 86; RESP 18; TEMP 36.8; O2SAT 95
--- NOTE | 2024-08-14 16:52 | EXP.DC.SUM ---
General Admission date:: 08/11/24 Discharge date: 08/14/24 HPI HPI HPI: This is a 64-year-old female who presented to her primary care provider with increasing abdominal pain that started a few days ago . She developed global abdominal pain that was worse in the middle . No fevers. She was significantly tender in the right lower quadrant and follow-up CT scan revealed changes consistent with perforated appendicitis with abscess. The surgical service was asked to evaluate the patient for urgent operative intervention. CBC dated 08/10/2024 reviewed. WBC 10.4 with no left shift. Hemoglobin 13.9. Platelet count 357. CMP dated 08/10/2024 reviewed. Potassium and creatinine normal. LFTs normal. CT scan from earlier today reviewed. Changes consistent with acute appendicitis with perforation and small abscess formation noted. Hospital Course Hospital Course Hospital Course: The patient underwent laparoscopic appendetomy (see operative report for detail). She was maintained on Zosyn due to the perforated (abscess) nature of her appendicitis. She remained afebrile with stable and normal vital signs. Her bowel function returned and her diet was advanced. She was deemed appropriate for discharge on POD#3. A course of Augmentin was prescribed. Exam Data for Last 24 hours Vital signs and Labs for Last 24 Hours: Temp Pulse Resp BP Pulse Ox O2 Del Method 98.3 F 86 18 112/59 L 95 Room Air 08/14/24 08:00 08/14/24 08:00 08/14/24 08:00 08/14/24 08:00 08/14/24 08:00 08/14/24 08:00 Laboratory Results - last 24 hr 08/14/24 05:17: WBC 6.9, RBC 3.62 L, Hgb 10.5 L, Hct 31.3 L, MCV 86.5, MCH 29.0, MCHC 33.5, RDW 12.8, Plt Count 295, MPV 10.1, Neut % (Auto) 54.0, Lymph % (Auto) 33.2, [place] % (Auto) 8.0, Eos % (Auto) 3.9, Baso % (Auto) 0.6, Neut # (Auto) 3.7, Lymph # (Auto) 2.3, [place] # (Auto) 0.6, Eos # (Auto) 0.3, Baso # (Auto) 0.0, Sodium 140, Potassium 3.6, Chloride 103, Carbon Dioxide 31 H, Anion Gap 9.6, BUN 12, Creatinine 1.30 H, Estimated Creat Clear 62, Estimated GFR 41 L, Est GFR ( Amer) 50 L, Glucose 98, Calcium 8.4 I & O for Last 24 hours: Intake & Output 08/12/24 08/13/24 08/14/24 08/15/24 11:59 11:59 11:59 11:59 Intake Total 2014 1500 / 1500 1784 / 1784 Output Total 1200 / 1200 1350 / 1350 2425 / 2425 Balance 815 / 815 150 / 150 -641 / -641 Weight 187 lb 187 lb 0.008 oz 196 lb 9 oz Constitutional Constitutional: no acute distress *Routine HEENT Exam Head: Present normocephalic Eye: Present EOMI ENT: Present mucous membranes moist *Routine Neck Exam Neck: Present full ROM Routine Chest/Breast/Axilla Exam Chest wall: Absent tenderness *Routine Respiratory Exam Respiratory: Absent respiratory distress *Routine Cardiovascular Exam Cardiovascular: Absent tachycardia *Routine Abdominal Exam Abdominal: Present soft *Routine Rectal Exam Patient deferred: visual exam *Routine Exam Patient deferred: external exam *Routine Extremities Exam Extremities: Present full ROM Routine Back/Spine/Pelvis Exam Back/Spine: Present full ROM *Routine Skin Exam Skin: Absent erythema Results Data Completed and Pending Labs on day of discharge: Labs from last 24 hours 08/14/24 05:17 WBC 6.9 RBC 3.62 L Hgb 10.5 L Hct 31.3 L MCV 86.5 MCH 29.0 MCHC 33.5 RDW 12.8 Plt Count 295 MPV 10.1 Neut % (Auto) 54.0 Lymph % (Auto) 33.2 [place] % (Auto) 8.0 Eos % (Auto) 3.9 Baso % (Auto) 0.6 Neut # (Auto) 3.7 Lymph # (Auto) 2.3 [place] # (Auto) 0.6 Eos # (Auto) 0.3 Baso # (Auto) 0.0 Sodium 140 Potassium 3.6 Chloride 103 Carbon Dioxide 31 H Anion Gap 9.6 BUN 12 Creatinine 1.30 H Estimated Creat Clear 62 Estimated GFR 41 L Est GFR ( Amer) 50 L Glucose 98 Calcium 8.4 DS: Diagnosis Discharge Diagnosis (1) Appendicitis with abscess: Status: Acute Code(s): K35.33 - Acute appendicitis with perforation, localized peritonitis, and gangrene, with abscess (2) Anxiety and depression: Status: Acute Code(s): F41.9 - Anxiety disorder, unspecified; F32.A - Depression, unspecified (3) Hyperlipidemia: Status: Chronic Code(s): E78.5 - Hyperlipidemia, unspecified Qualifiers: Hyperlipidemia type: unspecified Qualified Code(s): E78.5 - Hyperlipidemia, unspecified (4) Hypertension: Status: Chronic Code(s): I10 - Essential (primary) hypertension Qualifiers: Hypertension type: unspecified Qualified Code(s): I10 - Essential (primary) hypertension Meds Home Medications and Allergies Home Medications ?Medication ?Instructions ?Recorded ?Confirmed ?Type escitalopram oxalate 10 mg tablet 10 mg PO DAILY #90 tabs 08/09/24 08/11/24 Rx (Lexapro) pravastatin 40 mg tablet 40 mg PO HS 08/09/24 08/11/24 History valsartan 80 1 tab PO DAILY 80/12.5MG 08/09/24 08/11/24 History mg-hydrochlorothiazide 12.5 mg tablet levocetirizine 5 mg tablet 5 mg PO DAILY 08/11/24 08/11/24 History amoxicillin 875 mg-potassium 1 tab PO BID #10 tabs 08/14/24 Rx clavulanate 125 mg tablet hydrocodone 5 mg-acetaminophen 325 1 - 2 tab PO Q6H PRN Pain #11 tabs 08/14/24 Rx mg tablet New Prescriptions to Start Prescriptions: amoxicillin-pot clavulanate Parrish Turner hydrocodone-acetaminophen Parrish Turner Allergies Allergy/AdvReac Type Severity Reaction Status Date / Time No Known Allergies Allergy Verified 08/11/24 11:25 Discharge Plan Disposition Patient Disposition: Home, Self-Care Discharge Order Discharge Orders: Discharge Order (Routine); Ordered 08/14/24 Ordered By: Parrish Turner Follow up Plan Follow up with: Ronn Reilly MD [Staff Physician, General Surgery] - 08/16/24 12:45 pm Prescriptions/Medication Reconciliation: New hydrocodone-acetaminophen 5-325 mg Tablet 1 - 2 tab PO Q6H PRN (Reason: Pain) Qty: 11 0RF amoxicillin-pot clavulanate 875-125 mg tablet 1 tab PO BID Qty: 10 0RF Continued escitalopram oxalate [Lexapro] 10 mg tablet 10 mg PO DAILY Qty: 90 3RF pravastatin 40 mg tablet 40 mg PO HS valsartan-hydrochlorothiazide 80-12.5 mg tablet 1 tab PO DAILY levocetirizine 5 mg tablet 5 mg PO DAILY Problem Reconciliation Problems Reviewed?: Yes Patient Discharge Instructions ACTIVITY: No heavy lifting DIET: advance to your usual diet Patient Instructions: How to Care for a Surgical Wound, Appendicitis, Surgical Site Infection, Stop Light Infection Print Language: Korean Providers Primary Care Provider: Tamar Stiles Admit Provider: Ronn Reilly Attending Provider: Ronn Reilly
--- NOTE | 2024-08-15 10:23 | SW/DCPLANNER ---
Spoke with patient on the phone. Patient stated that she is doing good. Patient stated that she is doing good. Patient stated that she is aware of her upcoming appointments. Patient stated that she is was able to get her new medicine from clinic pharmacy. Patient stated that she has no concerns or questions at this time. Parth Treadwell
== END 2024-08-14 08:48 | disposition home or self-care (01) | DRG 336 ==
LOC: 2ND 13:18
PROVIDERS: Surgery; Admitting Provider Surgery; PCP Nurse Practitioner Family; Visit Provider Surgery
PROC: 0DTJ4ZZ Resection of Appendix, Percutaneous Endoscopic Approach (ICD-10-PCS; CPT 44970; principal; 2024-08-11 13:15)
DX: K35.33 Acute appendicitis with perforation, localized peritonitis, and gangrene, with abscess (principal); N17.9 Acute kidney failure, unspecified; F32.A Depression, unspecified; K66.0 Peritoneal adhesions (postprocedural) (postinfection); F41.9 Anxiety disorder, unspecified; E78.5 Hyperlipidemia, unspecified; I10 Essential (primary) hypertension; Z90.721 Acquired absence of ovaries, unilateral; Z79.899 Other long term (current) drug therapy; Z80.3 Family history of malignant neoplasm of breast
CPT/HCPCS: 36415; 51702; 80048; 80053; 81001; 85025; 99231; J0696; J1100; J1836; J1885; J2003; J2250; J2270; J2405; J2470; J2543; J2550; J2704; J3010; J3480; J7030

== ENCOUNTER 2024-08-16 13:11 | Outpatient (CLI) | payer BC, SELFPAY ==
[2024-08-16 13:14] LABS: Microscopic, Urine URINE MICROSCOPIC (MICROSCOPIC)
[2024-08-16 13:29] LABS: Appearance,Urine CLEAR (Clear); Bilirubin,Urine Negative (Negative); Blood, Urine Negative (Negative); Color,Urine YELLOW (Yellow); Glucose,Urine (UA) Negative (Negative); Ketones,Urine Negative (Negative); Leukocyte Esterase,Urine Negative (Negative); Nitrate,Urine Negative (Negative); PH,Urine 7.5 (5.0-8.5); Protein,Urine Negative (Negative); Urobilinogen,Urine 0.2 EU/dl (0.2)
[2024-08-16 13:30] LABS: Basophils # 0.1 K/mm3 (0-0.2); Basophils % 0.6 % (0.1-2.0); Eosinophils # 0.4 Kmm3 (0.0-0.4); Eosinophils % 4.1 % (0.1-12.0); Hematocrit 37.6 % (37.0-47.0); Hemoglobin 12.5 g/dL (12.2-16.2); Immature Granulocytes # 0.03 10^3uL; Immature Granulocytes % 0.4 %; Lymphocytes # 1.9 K/mm3 (0.7-4.5); Lymphocytes % 22.7 % (10-50); Mean Corpuscular HGB Conc 33.2 g/dL (31.8-35.4); Mean Corpuscular Hemoglobin 28.3 pg (27.0-31.2); Mean Corpuscular Volume 85.1 fl (81-99); Mean Platelet Volume 9.4 fl (7.4-10.4); Monocytes # 0.5 K/mm3 (0.1-1.0); Monocytes % 6.3 % (1.7-9.3); Neutrophils # 5.6 K/mm3 (1.8-7.8); Neutrophils % 65.9 % (37.0-80.0); Nucleated Red Blood Cells # 0 10^3/uL; Nucleated Red Blood Cells % 0 %; Platelet Count 406 K/mm3 (142-424); Red Blood Count 4.42 M/mm3 (4.20-5.40); Red Cell Distribution Width 12.6 % (11.5-17.5); Red Cell Distribution Width-SD 38.7 fL; White Blood Count 8.5 K/mm3 (4.8-10.8)
[2024-08-16 13:51] LABS: Squamous Epithelial Cell,Urine Occasional #/hpf (0-5); WBC,Urine Occasional #/hpf (0-3)
[2024-08-16 13:52] LABS: Bacteria,Urine Trace /lpf
[2024-08-16 14:16] LABS: Anion Gap 12.2 mEq/L (5-15); Blood Urea Nitrogen 8 mg/dl (7-17); Calcium 10.2 mg/dl (8.4-10.2); Carbon Dioxide 30 mmol/L (22.0-30.0); Chloride 99 mmol/L (98-107); Estimated Glomerular Filt Rate 56 ml/min (>60); GFR (African American) 68 ML/MIN (>60); Glucose 106 mg/dl (74-100); Potassium 4.2 mmoL/L (3.5-5.1); Sodium 137 mmol/L (136-145)
== END 2024-08-16 23:59 | disposition home or self-care (01) ==
LOC: LAB 13:11
PROVIDERS: PCP Nurse Practitioner Family; Visit Provider Surgery
DX: Z90.49 Acquired absence of other specified parts of digestive tract (principal)
CPT/HCPCS: 36415; 80048; 81001; 85025

== ENCOUNTER 2025-01-11 11:45 | Outpatient (CLI) | payer BC, SELFPAY ==
--- OUTSIDE RECORDS SUMMARY | 2025-01-11 13:20 | XMS_ITS | Clinical Summary ---
Author Organization [facility] Address [address] [place] [address] Care Team Providers Care Supervisor Rolling Room Name Role Phone Winston Camarena MD Primary Care Provider + Allergies No known active allergies Medications valsartan-hydrochl orothiazide (DIOVAN-HCT) 80-12.5 MG per tablet 11/12/2018 Active pravastatin (PRAVACHOL) 10 MG tablet 11/12/2018 Active escitalopram (LEXAPRO) 10 MG tablet 11/21/2018 Active Active Problems Problem Noted Date Diagnosed Date Hypertension 12/08/2016 Family History Medical History Relation Name Comments Breast cancer Mother Colon cancer Neg Hx Osteoporosis Neg Hx Ovarian cancer Neg Hx Relation Name Status Comments Father Alive Mother Alive Social History Tobacco Use Types Packs/Day Years Used Date Smoking Tobacco: Never Smokeless Tobacco: Never Alcohol Use Standard Drinks/Week Comments Yes 7 (1 standard drink = 0.6 oz pur e alcohol) AUDIT-C Answer Date Recorded Frequency of Alcohol Consumption 4 or more times a week 01/17/2019 Average Number of Drinks Not on file 019 Frequency of Binge Drinking Not on file 12/24 Abuse Screen Answer Date Recorded Unsafe at Home or Work/School Not on file Feels Threatened by Someone? Not on file 10/2022 Does Anyone Keep You from Co ntacting Others or Doint Things Outside the Home? Not on file 11/30/2022 Physical Sign of Abuse Present Not on file 1 Housing Stability Answer Date Recorded Current Living Arrangements Not on file 10/2022 Potentially Unsafe Housing Conditions Not on alvin e 11/30/2022 Family and Community Support Answer Arie e Recorded Help with Day-to-Day Activities Not on file 11/30/2022 Lonely or Isolated Not on file 11/30/2022 Employment Answer Date Recorded Do you want help finding or keeping work or a nazia b? Not on file 11/30/2022 Disabilities Answer Date Recorded Concentrating, Remembering, or Making Decisions Difficulty Not on file 11/30/2022 Doing Errands Independently Difficulty Not on fi le 11/30/2022 Education Answer Date Recorded Help with school or training? Not on file Preferred Language Not on file 11/30/2022 Comments No Sex and Gender Information Value Date Recorded Sex Assigned at Not on file Legal Sex Female 10:12 AM EDT Gender Identity Not on file Sexual Orientation Not on file Last Filed Vital Signs Vital Sign Reading Time Taken Comments Blood Pressure 118/80 01/17/2019 3:09 PM EST Pulse - - Temperature - - Respiratory Rate - - Oxygen Saturation - - Inhaled Oxygen Concentration - - Weight 85.7 kg (189 lb) 01/17/2019 3:09 PM EST Height 163.2 cm (5' 4.25 ) 01/17/2019 3:09 PM ES T Body Mass Index 32.19 01/17/2019 3:09 PM EST Plan of Treatment Health Maintenance Due Date Last Done Comments TDAP/TD VACCINES (1 - Tdap) 02/16/1979 COLOGUARD 02/16/2005 COLON CANCER SCREENING 5 YEA R SIGMOIDOSCOPY 02/16/2005 COLONOSCOPY 02/16/2005 COLORECTAL CANCER SCREENING 02/16/2005 CT COLONOGRAPHY 02/16/2005 FECAL OCCULT BLOOD TEST 02/16/2005 FIT Testing (1 year) 02/16/2005 Pneumococcal Vaccine 50+ (1 of 1 - PCV) 02/16/2010 ZOSTER VACCINE (1 of 2) 02/16/2010 ANNUAL PHYSICAL 12/08/2016 HEPATITIS C SCREENING 12/08/2016 Annual Gynecologic Pelvic and Breast Exam 01/19/2020 01/17/2019, 04/03/2015 MAMMOGRAM 04/29/2021 04/30/2019 INFLUENZA VACCINE 09/22/2024 Procedures Procedure Name Priority Date/Time Associated Diagnosis Comments SCANNED - MAMMO 04/30/2019 SCANNED - PAP SMEAR 01/17/2019 from Last 3 Months or Most Recently Relevant to Health Maintenance Results * SCANNED - MAMMO (04/30/2019) Anatomical Region Laterality Modality Other Jonathan Russ MD CHART REVIEW TABS Final Resul t * SCANNED - PAP SMEAR (01/17/2019) Jonathan Russ MD CHART REVIEW TABS Final Resul t from Last 3 Months or Most Recently Relevant to Health Maintenance Insurance PPO Care Teams Supervisor Rolling Room Relationship Specialty Start Date End Date Winston Camarena MD PCP - General Family Medicine 01/17/19
--- NOTE | 2025-01-11 15:00 | MM_ITS ---
PROCEDURE INFORMATION: Exam: MG Bilateral Screening 3D Mammography Exam date and time: 01/11/2025 11:44 AM Age: 64 years old Clinical indication: Screening examination. TECHNIQUE: Imaging protocol: Bilateral Screening tomosynthesis and 2D mammography including computer-aided detection (CAD) when performed. COMPARISON: 1. MG MM DIG SCREENING MAMM BI W/CAD 09/07/2023 12:54 PM 2. MG MM DIG SCREENING MAMM BI W/CAD 09/04/2021 12:51 PM FINDINGS: MAMMOGRAPHY: Breast composition: There are scattered areas of fibroglandular density. Mass: None. Architectural distortion: None. Calcifications: No suspicious calcifications. Asymmetric density: None. Skin thickening: None. Axillary adenopathy: None. IMPRESSION: No mammographic evidence of malignancy. Annual screening is recommended unless otherwise clinically indicated. ASSESSMENT: BI-RADS Category 1: Negative.
== END 2025-01-11 23:59 | disposition home or self-care (01) ==
LOC: RAD 11:46
PROVIDERS: PCP Nurse Practitioner Family; Visit Provider Nurse Practitioner Family
DX: Z12.31 Encounter for screening mammogram for malignant neoplasm of breast (principal); R92.323 Mammographic fibroglandular density, bilateral breasts
CPT/HCPCS: 77063; 77067